=== PATIENT | female | born 1970 | race Caucasian/White ===

== ENCOUNTER 2018-01-06 15:54 | Observation (INO) | payer OTHER ==
[~2018-01-06] VITALS: Ht 167.6 cm; Wt 87.3 kg
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
--- NOTE | 2018-01-06 17:07 | CT SCAN REPORT ---
EXAMINATION: CT HEAD WITHOUT CONTRAST CLINICAL INFORMATION: 47-year-old female with altered mental status. Possible CVA. COMPARISON: None TECHNIQUE: Contiguous axial imaging was performed from the skull base to vertex without intravenous administration of contrast. DLP: 617.66 mGy-cm FINDINGS: There is no evidence of acute intracranial hemorrhage or territorial infarction. No abnormal mass effect or midline shift is seen. Dang to white matter differentiation is well preserved. No extra-axial fluid collections are identified. The ventricles are normal in size. There is no abnormal attenuation within the brain parenchyma. The soft tissues are normal. The mastoid air cells and visualized portions of the paranasal sinuses are well aerated. Incidental note is made of diffuse osteosclerosis involving the entire visualized base as well as part of the skull, of uncertain etiology. IMPRESSION: No acute intracranial pathology. Nonspecific diffuse osteosclerosis of the skull. This critical result was discussed with SHELBY Song at 5:03 PM on 01/06/2018 and it was ascertained that the content and urgency of the report was understood at the time of direct communication.
[2018-01-06 17:09] LABS: ABSOLUTE BASOPHIL COUNT 0 /CUMM (0.0-0.2); ABSOLUTE EOSINOPHIL COUNT 0.1 /CUMM (0.0-0.7); ABSOLUTE GRANULOCYTE CT 4.5 /CUMM (1.4-6.5); ABSOLUTE MONOCYTE COUNT 0.5 /CUMM (0.10-0.60); BASOPHIL % 0.5 % (0.0-2.0); EOSINOPHIL % 1.6 % (0-5); GRANULOCYTE % 55.2 % (42.2-75.2); HEMATOCRIT 38.3 % (37-47); MEAN CORPUSCULAR HGB 30.4 PG (27.0-31.0); MEAN CORPUSCULAR HGB CONC 34.1 G/DL (33.0-37.0); MEAN CORPUSCULAR VOLUME 89.2 FL (81.0-99.0); MEAN PLATELET VOLUME 8.7 FL (7.4-10.4); PLATELET COUNT 345 /CUMM (130-400); RBC DISTRIBUTION WIDTH 13.5 % (11.5-14.5); RED BLOOD CELL CT 4.29 /CUMM (4.20-5.40); WHITE BLOOD CELL COUNT 8.1 /CUMM (4.8-10.8)
[2018-01-06 17:17] LABS: PT 11.1 SEC (9.4-12.5); PTT 32 SEC (25-37)
--- NOTE | 2018-01-06 18:39 | CT SCAN REPORT ---
EXAMINATION: CTA OF THE HEAD AND NECK CLINICAL INFORMATION: Altered mental status and dysarthria. COMPARISON: Head CT from the same day on 01/06/2018. TECHNIQUE: Test bolus sequences followed by intravenous administration 75 mL of Optiray 320. Helical imaging was performed in the axial plane from the mediastinum to the skull vertex. Delayed postcontrast imaging of the head was also performed. The data was processed at the fibre technologist's workstation for generation of MIP sequences. Three-dimensional volume rendered reformatted images were also generated at an offline 3-D workstation. DLP: 1100.74 mGy-cm. FINDINGS: CT head: There is no evidence of acute intracranial hemorrhage or territorial infarction. There is no loss of scott to white matter differentiation. No abnormal mass effect or midline shift is seen. No extra-axial fluid collections are identified. There is no abnormal enhancement. The ventricles are normal in size. There is no abnormal attenuation within the brain parenchyma. The osseous structures and soft tissues are normal. The mastoid air cells are well aerated. There is mild mucosal thickening in the left maxillary sinus. CTA neck: The imaged aortic arch and origins of the great vessels are normal. The common carotid arteries are widely patent. The carotid bifurcations are normal. The cervical internal carotid arteries are normal. The vertebral arteries opacify normally and are of normal caliber. The soft tissues of the neck are unremarkable. Moderate loss of disc height with endplate spurring and a posterior disc bulge noted at C6-C7. The imaged portions of the lungs are clear. CTA head: The intradural vertebral arteries and basilar artery are normal. The posterior cerebral arteries are widely patent. The internal carotid arteries are of normal caliber. The JM and MCA vascular complexes bilaterally are normal. The venous sinuses opacify normally. IMPRESSION: Normal CT angiogram of the head and neck. No acute process. Moderate spondylosis at C6-C7.
[2018-01-06] MEDS ORDERED: ORPHENADRINE C100 MG PO (18:47)
[2018-01-06] MEDS ORDERED: PANTOPRAZOLE SO40 M1 PO (18:47)
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
[2018-01-06 22:42] VITALS: BP 100/60
[2018-01-07 06:32] VITALS: BP 110/77
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
[2018-01-07] MEDS ORDERED: ATORVASTATIN CA40 M1 PO ×2 (12:33→14:59)
[2018-01-07] MEDS ORDERED: VOLTAREN100 GM TOP ×2 (12:33→14:59)
[2018-01-07] MEDS ORDERED: ASPIRIN81 M4 PO ×2 (12:33→14:59)
--- NOTE | 2018-01-07 12:40 | Patient Discharge Instructions ---
Discharge Instructions General Discharge Information You were seen/treated for: - Postconcussion syndrome/ adverse reaction of orphenadrine Special Instructions: - Please follow up with your primary care phsyician in one week. - Please follow up with your neurologist in one week. - Please discard Orphenadrine as it may have contributed to your symptoms. Diet Recommended Diet: Gluten Free Activity Activity Self Limited: Yes Acute Coronary Syndrome Inclusion Criteria At DC or during hospital stay patient has or had the following: ACS DIAGNOSIS No Discharge Core Measures Meds if any: Prescribed or Continued at Discharge Meds if any: NOT Prescribed or Continued at Discharge Congestive Heart Failure Inclusion Criteria At DC or during hospital stay patient has or had the following: CHF DIAGNOSIS No Discharge Core Measures Meds if any: Prescribed or Continued at Discharge Meds if any: NOT Prescribed or Continued at Discharge Cerebrovascular accident Inclusion Criteria At DC or during hospital stay patient has or had the following: CVA/TIA Diagnosis No Discharge Core Measures Meds if any: Prescribed or Continued at Discharge Meds if any: NOT Prescribed or Continued at Discharge Venous thromboembolism Inclusion Criteria VTE Diagnosis No VTE Type NONE VTE Confirmed by (Test) NONE Discharge Core Measures - Per Current guidelines, there needs to be overlap - treatment for the first 5 days of Warfarin therapy. - If discharged on Warfarin prior to 5 days of - overlap therapy, the patient will need to be - assessed for post discharge needs including - *Post discharge parental anticoagulation - *Warfarin and/or parental anticoagulation education - *Follow up date to check INR post discharge At least 5 days overlap therapy as Inpatient No Meds if any: Prescribed or Continued at Discharge Note: Overlap Therapy is Warfarin and Anticoagulant Meds if any: NOT Prescribed or Continued at Discharge
[2018-01-07] MEDS ORDERED: NAPROSYN500 M1 PO (13:45)
[2018-01-07] MEDS ORDERED: IBUPROFEN800 M1 PO (14:58)
[2018-01-07 15:20] VITALS: BP 104/70; BP 154/70
== END 2018-01-07 15:30 ==
LOC: ERH 15:54 → ERHI 19:40 → 1NO 19:40 → ENRESERV 21:12 → ENTRNSPT 21:59 → EDTRNSPTSTS 22:06 → 1NO 22:16 → CMPTRNSPT 22:23 → 1NO 01-07 10:04 → ENPENDDIS 01-07 14:59 → 1NO 01-07 15:30
PROVIDERS: Physician Assistant
DX: F07.81 Postconcussional syndrome (principal); R47.1 Dysarthria and anarthria; K21.9 Gastro-esophageal reflux disease without esophagitis; R42 Dizziness and giddiness; M54.2 Cervicalgia
CPT/HCPCS: 6020; 70551; 80307; 93005; 93010; 96372; 96374; G0378; G0480; J0131; J1644; J3490